=== PATIENT | female | born 1985 ===

== ENCOUNTER 2017-05-21 09:01 | Emergency (ER) | payer MEDICAID ==
[~2017-05-21] VITALS: Ht 162.6 cm; Wt 92.0 kg
[~2017-05-21 09:01] MED LIST: PRED20 PO
[2017-05-21 09:03] VITALS: BP 137/88; PULSE 80; RESP 20; TEMP 98.5; O2SAT 98
[2017-05-21] MEDS ORDERED: BUSP30TA PO (09:14)
--- NOTE | 2017-05-21 09:14 | PD ---
HPI Chief Complaint: Injury Time Seen by Provider: 09:13 Travel History International Travel<30 days: No Contact w/Intl Traveler<30days: No Traveled to known affect area: No History of Present Illness HPI 31-year-old female presents emergency Department with complaint of right fifth toe pain after stepping on a couch last night. Denies paresthesias, loss of sensation to the affected toe. Has fang taped the toe to the fourth toe for support. Has not taken any medications to alleviate her symptoms. No known allergies. Has no medical complaints. Symptoms are mild in severity. No other modifying factors or associated signs and symptoms. PFSH Past Medical History Diminished Hearing: No ?: Not LMP: 04/29/17 Tubal Ligation: Yes Social History Alcohol Use: No Tobacco Use: No Substance Use: No Allergies-Medications (Allergen,Severity, Reaction): Coded Allergies: No Known Allergies (Unverified , 10/11/13) Reported Meds & Prescriptions Reported Meds & Active Scripts Active Ibuprofen 800 Mg Tab 800 Mg PO Q6HR PRN Reported Buspirone (Buspirone HCl) 30 Mg Tab 30 Mg PO DAILY Review of Systems Except as stated in HPI: all other systems reviewed are Neg Physical Exam Narrative GENERAL: Well-nourished, well-developed female patient, in no acute distress SKIN: Warm and dry. HEAD: Atraumatic. Normocephalic. EYES: Pupils equal and round. No scleral icterus. No injection or drainage. ENT: Mucosa pink and moist. Airway patent. NECK: Trachea midline. CARDIOVASCULAR: Regular rate. RESPIRATORY: No accessory muscle use. GASTROINTESTINAL: Rounded. MUSCULOSKELETAL: Right fifth toe is edematous and rhythm with ecchymosis; without erythema psych: No obvious deformity; sensory intact and less than 3 second cap refill; no tenderness on palpation to the fourth or fifth metatarsal area. Right lower extremity supple and non-tense with 2+ pedal pulse and sensory intact without erythema or edema. No obvious deformities. No clubbing. No cyanosis. No edema. NEUROLOGICAL: Awake and alert. Oriented 3. No obvious cranial nerve deficits. Motor grossly within normal limits. Normal speech. PSYCHIATRIC: Appropriate mood and affect; insight and judgment normal. Data Data Last Documented VS Vital Signs Date Time Temp Pulse Resp B/P (MAP) Pulse Ox O2 Delivery O2 Flow Rate FiO2 05/21/17 09:03 98.5 80 20 137/88 (104) 98 Room Air Orders Orders Ibuprofen (Motrin) (05/21/17 09:15) Toe (Min 2vws) (05/21/17 ) [facility] Medical Decision Making Medical Screen Exam Complete: Yes Emergency Medical Condition: Yes Medical Record Reviewed: Yes Differential Diagnosis Toe contusion, toe fracture, toe sprain Narrative Course 31-year-old female with right fifth toe injury. Ibuprofen administered in the ER. Right fifth toe x-ray ordered. 1029: Right fifth toe x-ray concludes: Fifth toe proximal phalangeal fracture. Minimal displacement. Toe fang taped back into place. So she provided for support. Patient declined crutches at this time. Ibuprofen prescribed for home. Instructed patient to follow up with primary care provider. Patient verbalizes understanding and agreement with treatment plan. Patient is medically cleared and stable for discharge. Discussed reasons to return to the emergency department. Patient agrees with treatment plan. The patients vital signs are stable and the patient is stable for outpatient follow- up and treatment. Patient discharged home, stable and in no acute distress. Diagnosis Primary Impression: Fracture of fifth toe, right, closed Qualified Codes: S92.501A - Displaced unspecified fracture of right lesser toe (s), initial encounter for closed fracture Referrals: Primary Care Physician Patient Instructions: Crutch Instructions (ED), General Instructions Departure Forms: Tests/Procedures, Work Release Enter return to work date: May 26, 2017 Additional Instructions: Tylenol or ibuprofen as directed and as needed for pain and inflammation Rest, ice, compress, and elevate extremity to decrease pain and inflammation Foot shoe for support Crutches for support Avoid aggravating activity; increase activity as tolerated Follow-up with primary care provider Return to the emergency department immediately with worsening of symptoms Med/Other Pt SpecificInfo: Prescription(s) given Scripts Ibuprofen (Ibuprofen) 800 Mg Tab 800 MG PO Q6HR Y for PAIN, #30 TAB 0 Refills Prov: Barbara Jean 05/21/17 Disposition: 01 DISCHARGE HOME Condition: Stable Barbara Jean May 21, 2017 09:14
[2017-05-21] MEDS ORDERED: IBUPROFEN 800 MG TAB PO ONE (09:15)
[2017-05-21] MEDS ORDERED: IBUP800T23 PO (09:31)
--- NOTE | 2017-05-21 10:09 | RADRPT ---
EXAM DATE/TIME: 05/21/2017 09:30 [facility] COMPARISON: No previous studies available for comparison. INDICATIONS : Right foot, 5th digit pain after stubbing toe during a fall. pain when patient is walking. MEDICAL HISTORY : None. SURGICAL HISTORY : Tubal ligation. ENCOUNTER: Initial ACUITY: 2 days PAIN SCORE: 8/10 LOCATION: Right 5th digit. FINDINGS: There is a multipart minimally displaced fracture involving the fifth toe proximal phalanx, mainly in volving the diaphysis and proximal metaphyseal region. The articulations appear grossly intact. CONCLUSION: Fifth toe proximal phalangeal fracture. Minimal displacement Mainor Zeng MD on May 21, 2017 at 10:06 Board Certified Radiologist. This report was verified electronically.
== END 2017-05-21 11:12 | disposition home or self-care (01) ==
LOC: NEPK 09:01
DX: S92.501A Displaced unspecified fracture of right lesser toe(s), initial encounter for closed fracture (principal); W22.8XXA Striking against or struck by other objects, initial encounter; Z79.899 Other long term (current) drug therapy
CPT/HCPCS: 73660; 99283